=== PATIENT | female | born 1960 | race Caucasian/White ===

== ENCOUNTER 2024-10-11 09:02 | Day surgery (SDC) | payer MEDICARE, BC ==
[~2024-10-11 09:02] MED LIST: Midazolam 1 MG/ML 2 ML SDV ONE; Propofol 200 MG/20 ML SDV ONE
[2024-10-11] MEDS ORDERED: Sodium Chloride 0.9% 10 ML Syringe FLUSH PRN (09:15)
[2024-10-11] MEDS: Lactated Ringers 1,000 ML IV SCH (10:28)
[2024-10-11] MEDS ORDERED: Propofol 200 MG/20 ML SDV IVPUSH ONE (10:30)
== END 2024-10-11 11:50 | disposition home or self-care (01) ==
LOC: LL.SDS 09:02
PROVIDERS: ATTEND Surgery
DX: Z12.11 Encounter for screening for malignant neoplasm of colon (principal); K29.50 Unspecified chronic gastritis without bleeding; E03.9 Hypothyroidism, unspecified; E78.5 Hyperlipidemia, unspecified; Z79.890 Hormone replacement therapy; Z79.899 Other long term (current) drug therapy
CPT/HCPCS: 00813; 43239; G0121; J2250; J2704; J7120; 88305; 88342